=== PATIENT | male | born 2000 | race Caucasian/White ===

== ENCOUNTER 2022-07-07 22:45 | Emergency (ER) | payer OTHER ==
[~2022-07-07 22:45] MED LIST: PREDNISONE 20MG20 MG PO; TESSALON PERLE100 MG PO; ZYRTEC10 M3 PO; mucinex
[2022-07-07 23:16] LABS: BASOPHIL 0.2 % (0-2); EOSINOPHIL 5.2 % (0-5); HCT 43.7 % (42.0-52.0); HGB 14.8 g/dl (13.2-18.0); LYMPHOCYTE 25.3 % (15-48); MCH 29.4 pg (25.0-31.0); MCHC 33.9 g/dL (32.0-36.0); MCV 86.9 fL (78.0-100.0); MONOCYTE 7.7 % (0-12); MPV 12.6 fL (6.0-9.5); NEUTROPHIL 61.2 % (41-80); NRBC 0; PLT 124 K/uL (150-400); RBC 5.03 M/uL (4.70-6.00); RDW 12.7 % (11.5-14.0); WBC 8.3 K/uL (4.0-10.5)
[2022-07-07 23:28] LABS: INR 1.05 (0.9-1.2); PROTHROMBIN TIME 13.4 SECONDS (11.9-13.9); PTT 28.1 SECONDS (24.9-34.6)
[2022-07-07 23:41] LABS: ALBUMIN 4.1 g/dL (3.4-5.0); BILIRUBIN - TOTAL 0.2 mg/dL (0.2-1.0); BUN/CREAT RATIO (CALC) 19.8 RATIO; CREATININE 0.91 mg/dL (0.67-1.17); GLOBULIN (CALCULATION) 3.1 g/dL; POTASSIUM 3.9 mmol/L (3.5-5.1); TOTAL PROTEIN 7.2 g/dL (6.4-8.2)
[2022-07-08 00:13] LABS: CORONAVIRUS 2019 SARS-COV-2 NEGATIVE (NEGATIVE); INFLUENZA A NAA NEGATIVE (NEGATIVE)
[2022-07-08] MEDS ORDERED: MOTRIN600 MG PO (01:14)
== END 2022-07-08 01:25 | disposition home or self-care (01) ==
LOC: FER 22:45
PROVIDERS: Internal Medicine
DX: R07.89 Other chest pain (principal); J45.909 Unspecified asthma, uncomplicated; Z20.822 Contact with and (suspected) exposure to COVID-19
CPT/HCPCS: 36415; 71045; 80053; 84145; 84484; 85025; 85610; 85730; 93005; U0002